=== PATIENT | male | born 1990 | race Hispanic/Latino ===

== ENCOUNTER 2024-03-22 19:32 | Emergency (ER) | payer BC ==
[~2024-03-22] VITALS: Ht 170.2 cm; Wt 80.7 kg
[2024-03-22 19:56] LABS: APPEARANCE,URINE CLEAR (CLEAR); BILIRUBIN,URINE NEGATIVE (NEGATIVE); COLOR,URINE COLORLESS (YELLOW); GLUCOSE, URINE (UA) NEGATIVE (NEGATIVE); KETONES,URINE NEGATIVE (NEGATIVE); LEUKOCYTE ESTERASE ,URINE NEGATIVE Leu/uL (NEGATIVE); NITRATE,URINE NEGATIVE (NEGATIVE); OCCULT BLOOD,URINE NEGATIVE (NEGATIVE); PH,URINE 5.5 (5.0-8.0); PROTEIN,URINE NEGATIVE (NEGATIVE); UROBILINOGEN,URINE 0.2 mg/dL (0.2-1.0)
[2024-03-22 19:57] LABS: ADD UA MICROSCOPIC YES
[2024-03-22 19:58] LABS: WBC,URINE 0-1 /HPF (0-1)
[2024-03-22 20:00] VITALS: BP 135/79; PULSE 100; RESP 20; O2SAT 100
[2024-03-22] MEDS: IBUPROFEN 800 MG TAB PO ONE (20:12)
[2024-03-22 20:13] LABS: BASOPHILS # (AUTO) 0.07 K/uL (0.00-0.20); BASOPHILS % (AUTO) 0.7 % (0.0-5.0); EOSINOPHILS # (AUTO) 0.07 K/uL (0.00-0.70); EOSINOPHILS % (AUTO) 0.7 % (0.0-8.0); HEMATOCRIT 43.7 % (42-54); IMMATURE GRANULOCYTE ABSOLUTE 0.03 K/uL (0-1); LYMPHOCYTES # (AUTO) 1.9 K/uL (1.0-4.8); LYMPHOCYTES % (AUTO) 19.8 % (21.0-51.0); MEAN CORPUSCULAR HEMOGLOBIN 28.2 pg (27.0-33.0); MEAN CORPUSCULAR VOLUME 85.5 fL (79-99); MONOCYTES # (AUTO) 0.5 K/uL (0.1-1.0); MONOCYTES % (AUTO) 5.5 % (3.0-13.0); NEUTROPHILS # (AUTO) 7.2 K/uL (1.8-7.7); PLATELET COUNT (AUTO) 387 K/uL (130-400); RED BLOOD CELL COUNT(AUTO) 5.11 MIL/uL (4.50-6.20); RED CELL DISTRIBUTION WIDTH 12.6 % (11.0-15.5); WHITE BLOOD COUNT (AUTO) 9.8 K/uL (4.8-10.8)
[2024-03-22 20:20] LABS: CREATININE 1.2 mg/dL (0.5-1.3); POTASSIUM 3.4 mmol/L (3.5-5.1)
[2024-03-22] MEDS ORDERED: LEVO-70 PO (21:13)
[2024-03-22] MEDS ORDERED: IBUP-2077 PO (21:13)
[2024-03-22] MEDS: LEVOFLOXACIN 500 MG TABLET ONE (21:36)
[2024-03-22] MEDS: LEVOFLOXACIN 500 MG TABLET PO SCH (21:36)
== END 2024-03-22 21:38 | disposition home or self-care (01) ==
LOC: EDH 19:32
DX: N45.1 Epididymitis (principal); N43.3 Hydrocele, unspecified
CPT/HCPCS: 36415; 76870; 80048; 81001; 85025

== ENCOUNTER 2024-07-23 22:34 | Emergency (ER) | payer BC ==
[~2024-07-23] VITALS: Ht 170.2 cm; Wt 83.0 kg
[~2024-07-23 22:34] MED LIST: IBUP-2077 PO; LEVO-70 PO
--- NOTE | 2024-07-23 22:38 | NUR ---
DANIE OLIVER PROVIDED, REPORT TO WILBUR CHAVARRIA
[2024-07-23 22:58] LABS: APPEARANCE,URINE CLEAR (CLEAR); BILIRUBIN,URINE NEGATIVE (NEGATIVE); COLOR,URINE COLORLESS (YELLOW); GLUCOSE, URINE (UA) NEGATIVE (NEGATIVE); KETONES,URINE NEGATIVE (NEGATIVE); LEUKOCYTE ESTERASE ,URINE NEGATIVE Leu/uL (NEGATIVE); NITRATE,URINE NEGATIVE (NEGATIVE); OCCULT BLOOD,URINE NEGATIVE (NEGATIVE); PROTEIN,URINE NEGATIVE (NEGATIVE); UROBILINOGEN,URINE 0.2 mg/dL (0.2-1.0)
[2024-07-23 23:05] LABS: ADD UA MICROSCOPIC NO
[2024-07-23 23:53] VITALS: BP 122/70; PULSE 64; RESP 20; TEMP 98.6; O2SAT 100
--- NOTE | 2024-07-23 23:54 | ERN ---
General Chief Complaint: Testicular Injury/Pain Stated Complaint: TESTICULAR PAIN Time Seen by MD: 22:44 Time Seen by Midlevel: 22:44 Source: patient History of Present Illness Initial Comments Patient is a 34-year-old male with a past medical history of bilateral hydroceles and varicoceles presenting to the emergency department with bilateral testicular pain that started yesterday. He states the pain is in both testicles but is more pronounced on the left side. Denies any dysuria/hematuria at this time. Denies any fever, chills, nausea, vomiting, or any other symptoms at this time. Allergies: Coded Allergies: No Known Drug Allergies (Unverified Allergy, Unknown, 03/22/24) Home Meds Active Scripts Ibuprofen (Ibuprofen 800 mg Tab) 800 Mg Tab, 800 MG PO Q6H PRN for PAIN, #30 TAB Prov:CAMILLE HERRERA NP 03/22/24 Levofloxacin (Levofloxacin) 500 Mg Tablet, 500 MG PO DAILY for 14 Days, #14 TAB Prov:CAMILLE HERRERA NP 03/22/24 Past Medical History Past Medical History: Other Medical History Other: TESTICULAR HYDROCELE Past Surgical History: Other Surgical History Other: RIGHT KNEE SX ROS Dictation CONSTITUTIONAL: Negative except for HPI HEAD/FACE: Negative except for HPI EENT: Negative except for HPI RESPIRATORY: Negative except for HPI GASTROINTESTINAL/ABDOMINAL: Negative except for HPI GENITOURINARY: Negative except for HPI MUSCULOSKELETAL: Negative except for HPI INTEGUMENTARY: Negative except for HPI NEUROLOGICAL/PSYCH: Negative except for HPI HEMATOLOGIC/LYMPHATIC: Negative except for HPI All Systems Negative, Except as noted above. 13 point review of systems assessed and all negative except for above. Physical Exam Physical Exam Dictation Vital Signs reviewed General Appearance: Alert, oriented x 3, no acute distress, well developed, nourished. Head and Face: non-traumatic. Eyes: PERRL, pink conjunctivas, eyelid no trauma, anterior chamber with arcus senilis. Ears: Pinnas intact and no signs of trauma or erythema ear canals clear and no discharge TM no erythema Nose: No discharge, no bleeding. Oropharynx: Mouth normal, tongue pink, pharynx clear,no erythema, tonsils no exudates, no abscesses noted, mucous membrane moist Neck: Supple, non-tender, no thyromegaly, no masses, no JVD, no bruits Breast:Deferred Chest:No tenderness, no crepitus, no paradoxical movement, no retractions Lungs:Clear, well-ventilated, symmetric, no rales, no wheezing, no rhonchi, no stridor, good breath sounds bilaterally Heart: Regular rate, regular rhythm, no murmur, no gallops Vascular: no peripheral edema, Abdomen: Soft, positive bowel sounds, nondistended, no guarding, nontender, no rebound, no masses no hepatomegaly, no splenomegaly, no Torre's sign, no hernias. Rectal: Deferred Genital: Deferred Neurological: Normal speech, motor function intact, sensory function intact Musculoskeletal: Neck nontender, full range of motion, back nontender, full range of motion, Extremities: nontender, full range of motion Skin: Color pink, dry, no turgor, no rash, no lacerations, no abrasions, no contusions. Lymphatic: Deferred Results Laboratory and Microbiology Lab and Micro Result Laboratory Tests Test 07/23/24 22:41 Urine Color COLORLESS (YELLOW) Urine Appearance CLEAR (CLEAR) Urine pH 6.0 (5.0-8.0) Urine Specific [place] 1.005 (1.001-1.031) Urine Protein NEGATIVE mg/dL (NEGATIVE) Urine Glucose (UA) NEGATIVE mg/dL (NEGATIVE) Urine Ketones NEGATIVE mg/dL (NEGATIVE) Urine Occult Blood NEGATIVE (NEGATIVE) Urine Nitrate NEGATIVE (NEGATIVE) Urine Bilirubin NEGATIVE mg/dL (NEGATIVE) Urine Urobilinogen 0.2 mg/dL (0.2-1.0) Urine Leukocyte Esterase NEGATIVE Daryn/uL Labs Reviewed?: Yes MDM MDM: Patient is a 34-year-old male with a past medical history of bilateral hydroceles and varicoceles presenting to the emergency department with bilateral testicular pain that started yesterday. He states the pain is in both testicles but is more pronounced on the left side. Denies any dysuria/hematuria at this time. Denies any fever, chills, nausea, vomiting, or any other symptoms at this time. A urinalysis was obtained but does not show any evidence of infection. A scrotal ultrasound reveals bilateral hydroceles but no evidence of epididymitis or testicular torsion. Patient will be discharged home with supportive management. He was advised to follow up with his PCP in 2-3 days for repeat e valuation or return to the ER for any new or worsening symptoms. Differential diagnosis: Hydrocele, varicocele, urinary tract infection, epididymitis, testicular torsion There are no social concerns with this patient. Prescription drug management Prescriptions will include: None Medical management and examination interpretation discussions were had by me with other qualified healthcare professionals as indicated for the patient's care. ED Course Orders Procedure Category Date Status Time Urinalysis Profile LAB 07/23/24 Complete 22:35 Us Scrotum & Contents US 07/23/24 Taken 22:35 Vital Signs Date Time Temp Pulse Resp B/P (MAP) Pulse Ox O2 Delivery O2 Flow Rate FiO2 07/23/24 22:44 98.6 60 20 124/78 100 Room Air* 0 21 07/23/24 22:35 99.0 109 16 153/95 98 Room Air DX & DISP Disposition: Discharge Departure Impression: Primary Impression: Hydrocele, bilateral Condition: Stable Additional Instructions: Your urinalysis does not show any evidence of infection. Your testicular ultrasound reveals bilateral hydroceles but no evidence of epididymitis or testicular torsion. You will need to follow up with your primary care doctor for possible referral to Urology for outpatient evaluation. Return to your nearest ER if you develop any new or worsening symptoms. Referrals: ELENA BILL MD (PCP) Time of Disposition: 23:52 I have reviewed the case, and I agree with, Diagnosis and Plan I performed the substantive portion of the visit. I have reviewed and personally made and approve the management plan that is documented in the note by myself or the TIMOTEO. I acknowledge for responsibility for the patient's management plan. KIESHA SY Jul 23, 2024 23:54
--- NOTE | 2024-07-24 00:56 | HMCIMG ---
US SCROTUM & CONTENTS HISTORY: Bilateral testicular pain COMPARISON: 03/22/2024 TECHNIQUE: Duplex scrotal ultrasound study was performed. FINDINGS: The right testes measures 4.4 x 2.7 x 2.5 cm. The left testes measures 4.4 x 2.5 x 2.7 cm. No evidence of intratesticular mass or abnormal calcification is seen. Normal flow is demonstrated in the testes and epididymides bilaterally. Bilateral testes appears to be slightly hyperemic and clinical correlation is recommended. There are mild bilateral hydroceles. IMPRESSION: 1. No evidence of intratesticular mass is seen. 2. Normal flow is demonstrated of both testes. Mild bilateral hydroceles.
== END 2024-07-24 | disposition home or self-care (01) ==
LOC: EDH 22:34
DX: N43.3 Hydrocele, unspecified (principal); Z79.899 Other long term (current) drug therapy; Z98.890 Other specified postprocedural states
CPT/HCPCS: 76870; 81003; 99284

== ENCOUNTER 2024-11-27 02:20 | Emergency (ER) | payer BC ==
[~2024-11-27] VITALS: Ht 170.2 cm; Wt 86.6 kg
--- NOTE | 2024-11-27 02:26 | ERN ---
General Chief Complaint: Headache Stated Complaint: HEADACHE Time Seen by MD: 02:23 Source: patient History of Present Illness Initial Comments Patient otherwise healthy male 34 years old who comes in complaining of headaches for the last two weeks that always start around his left eye and then spread along the left side of his face and finally encompassing the entire back of his head. They are throbbing in nature and there are no associated visual symptoms. He comes in today because he could not sleep. Allergies: Coded Allergies: No Known Drug Allergies (Unverified Allergy, Unknown, 03/22/24) Home Meds Active Scripts Ibuprofen (Ibuprofen 800 mg Tab) 800 Mg Tab, 800 MG PO Q6H PRN for PAIN, #30 TAB Prov:CAMILLE HERRERA NP 03/22/24 Levofloxacin (Levofloxacin) 500 Mg Tablet, 500 MG PO DAILY for 14 Days, #14 TAB Prov:CAMILLE HERRERA [employer]ER 03/22/24 Past Medical History Past Medical History: Other Medical History Other: TESTICULAR HYDROCELE Past Surgical History: Other Surgical History Other: RIGHT KNEE SX Constitutional: (-) chills, (-) diaphoresis, (-) fever, (-) malaise, (-) weakness, (-) other documentation EENTM: (-) eye pain, (-) blurred vision, (-) tearing, (-) double vision, (-) ear pain, (-) ear discharge, (-) nose pain, (-) nose congestion, (-) throat pain, (-) Throat swelling, (-) mouth pain, (-) tooth pain, (-) mouth swelling, (-) other documentation Respiratory: (-) cough, (-) orthopnea, (-) short of breath, (-) stridor, (-) wheezing, (-) other documentation Cardiovascular: (-) chest pain, (-) edema, (-) palpitations, (-) syncope, (-) dyspnea on exertion, (-) other documentation Gastrointestinal/Abdominal: (-) nausea, (-) vomiting, (-) diarrhea, (-) abdominal pain, (-) abdominal distention, (-) constipation, (-) rectal bleeding, (-) dark stool/melena, (-) other documentation Musculoskeletal: (-) Neck pain, (-) back pain, (-) Flank Pain, (-) joint pain, (-) joint swelling, (-) muscle pain, (-) muscle stiffness, (-) gout, (-) other documentation Skin: (-) laceration, (-) contusion, (-) abrasion, (-) abscess, (-) rash, (-) change in color, (-) change in hair, (-) change in nails, (-) diaphoresis, (-) dryness, (-) other documentation Neuro: (-) altered mental status, (-) headache, (-) syncope, (-) paralysis, (-) numbness, (-) seizure, (-) pre-existing deficit, (-) tremors, (-) weakness, (-) dizziness, (-) slurred speech, (-) vertigo, (-) other documentation Physical Exam General Appearance: (+) no apparent distress Orientation: (+) alert Head/Face Trauma: No Eye: bilateral eye normal inspection, bilateral eye PERRL, bilateral eye EOMI Ear, Nose, Throat: (+) hearing grossly normal, (+) normal ENT inspection Neck: (+) normal inspection, (+) supple Respiratory: (+) chest non-tender, (+) lungs clear, (+) well ventilated Heart: (+) regular, (+) no gallop Vascular: (+) no edema, (+) normal peripheral pulse Gastrointestinal: (+) soft, (+) non-tender, (+) bowel sound present Results Laboratory and Microbiology Lab and Micro Result Laboratory Tests Test 11/27/24 02:56 Sodium Level 135 mmol/L (136-145) L Potassium Level 3.6 mmol/L (3.5-5.1) Chloride Level 101 mmol/L (101-111) Carbon Dioxide Level 27 mmol/L (21-32) Blood Urea Nitrogen 13 mg/dL (7-18) Creatinine 1.2 mg/dL (0.5-1.3) Glomerular Filtration Rate Calc 81 mL/min (>90) Random Glucose 158 mg/dL (70-105) H Total Calcium 8.6 mg/dL (8.5-10.1) MDM Patient's headaches maybe tension headaches or cluster headaches. Start treating him with just fluids and Flexeril. I do not think this is a migraine as he has no prodrome symptoms. Patient's chemistry panel was normal except maybe a slight elevation of his creatinine. The fluid in the Toradol did not help his headache that much so I obtained a CT scan and he has sinusitis acute both of his mastoid sinuses have fluid in the his nasal mucosa is swollen and because of his deviated septum partially occluded on the left. I asked the patient again if he has had any stress in his life recently and he said no his life has never been better. I do not have an explanation for his headaches. They could be dehydration headaches it could be related to his acute sinusitis. I have recommended that he drink plenty of water. And for his sinus infection/inflammation I recommended Sudafed. ED Course Orders Procedure Category Date Status Time Cyclobenzaprine Hcl PHA 11/27/24 Complete (Cyclobenzaprine Hcl 03:00 Lactated Ringers PHA 11/27/24 Complete 1000ml (Lactated 02:37 Basic Metabolic Panel LAB 11/27/24 Complete 02:38 Ketorolac PHA 11/27/24 Complete Tromethamine 30mg/Ml 03:00 Ct Head/Brain W/O CT 11/27/24 Taken Contrast 03:18 Current Medications Medications (Trade) Dose Ordered Sig/Karthik Route PRN Reason Start Time Stop Time Status Last Admin Dose Admin Cyclobenzaprine HCl (Cyclobenzaprine HCl) 10 mg ONCE ONCE PO 11/27/24 03:00 11/27/24 03:01 DC 11/27/24 02:50 Ketorolac Tromethamine (toRADol) 30 mg ONCE ONCE IM 11/27/24 03:00 11/27/24 03:01 DC 11/27/24 03:05 Lactated Ringer's (Lactated Ringers 1000ml) 1,000 ml BOLUS STAT IV 11/27/24 02:37 11/27/24 02:41 DC 11/27/24 02:50 Vital Signs Date Time Temp Pulse Resp B/P (MAP) Pulse Ox O2 Delivery O2 Flow Rate FiO2 11/27/24 02:56 98 18 126/72 99 Room Air* 0 21 11/27/24 02:22 98.6 100 20 144/84 100 Room Air DX & DISP Disposition: Discharge Departure Impression: Primary Impression: Sinusitis Condition: Stable Additional Instructions: Drink plenty of fluid. And I recommend Sudafed [id number] to help drain the sinuses. Referrals: ELENA BILL MD (PCP) TWIN WU MD Nov 27, 2024 02:26
[2024-11-27] MEDS: LACTATED RINGERS 1000ML IV STA (02:50)
[2024-11-27] MEDS: CYCLOBENZAPRINE HCL 10 MG TABLET PO ONE (02:50)
[2024-11-27] MEDS: ketOROlac 30MG VIAL (30MG/ML) IM ONE (03:05)
[2024-11-27 03:10] LABS: CREATININE 1.2 mg/dL (0.5-1.3); POTASSIUM 3.6 mmol/L (3.5-5.1)
[2024-11-27 04:20] VITALS: BP 143/75; PULSE 98; RESP 18; TEMP 98.4; O2SAT 99
--- NOTE | 2024-11-27 08:22 | HMCIMG ---
Exam Type: CT HEAD/BRAIN W/O CONTRAST Clinical Information: CEJA Comparison: None CT Dose Index (CTDI): 57.33 mGy Dose Length Product (DLP): 956.79 total mGy-cm Findings: The examination is unremarkable. Roman-white matter junction is preserved. No intra or extra axial lesions or fluid collections are seen. Specifically, roman and white matter are normal in signal characteristics with normal caliber of ventricles and periventricular cisterns with no evidence of intra or or extra-axial hemorrhage, lacunar infarct, or major territorial infarct, mass, or other abnormality. There are no infarcts. There are no hemorrhages. Periventricular white matter locations are preserved. The orbital contents and structures of the posterior fossa are intact. Air-fluid levels of both maxillary sinuses consistent with acute sinusitis. Impression: Normal CT of the brain. Acute bilateral maxillary sinusitis. This study was performed using dose reduction techniques to include automated exposure control and/or adjustment of the mA and/or kV according to patient size.
== END 2024-11-27 04:21 | disposition home or self-care (01) ==
LOC: EDH 02:20
DX: J32.9 Chronic sinusitis, unspecified (principal)
CPT/HCPCS: 99284; 70450; 80048; 36415; 96372; J1885; J7120; 99285